=== PATIENT | female | born 1975 | race American Indian/Alaskan Native ===

== ENCOUNTER 2018-03-20 23:15 | Emergency (ER) | payer OTHER ==
[2018-03-20] MEDS ORDERED: Lorazepam 2 MG/ML VIAL ONE (23:41)
== END 2018-03-21 00:14 | disposition home or self-care (01) ==
LOC: MADERS 23:15
DX: R07.9 Chest pain, unspecified (principal); F41.9 Anxiety disorder, unspecified
CPT/HCPCS: 93005; 96374; J2060

== ENCOUNTER 2018-09-02 12:21 | Outpatient (CLI) | payer OTHER ==
--- NOTE | 2018-09-02 13:44 | RAD ---
LUMBAR SPINE RADIOGRAPHS THREE VIEWS: 09/02/2018 PROVIDED CLINICAL HISTORY: Back pain. FINDINGS: Five [id number] lumbar-type vertebral bodies are present. Lumbar alignment appears normal. Castro tebral body heights appear preserved. Intervertebral disk space heights appear preserved. Pedicles appear intact. No lytic or blastic lesions are seen. IMPRESSION: Unremarkable lumbar spine radiographs. POS: C
--- NOTE | 2018-09-02 13:54 | RAD ---
TWO VIEWS SACRUM AND COCCYX: Date: 09-02-18 Provided Clinical History: Sacroiliitis. FINDINGS: The sacroiliac joints are suboptimally evaluated in the absence of oblique views. However, there is a symmetric appearance to the sacroiliac joints without evidence for periarticular sclerosis or aversi on of the subchondral bone plate. No evidence for fracture or other acute osseous abnormality. IMPRESSION: 1. No radiograph evidence for sacroiliitis. POS: C
== END 2018-09-02 12:22 | disposition home or self-care (01) ==
LOC: MADRAD 12:21
PROVIDERS: ATTEND Family Medicine
DX: M46.1 Sacroiliitis, not elsewhere classified (principal)
CPT/HCPCS: 72100; 72220

== ENCOUNTER 2018-12-22 13:23 | Emergency (ER) | payer OTHER ==
--- NOTE | 2018-12-22 14:30 | RAD ---
CHEST 1 VIEW LEFT RIBS 2 VIEWS: Date: 12/22/18 HISTORY: Left rib pain, worse with inspiration. FINDINGS: No evidence for acute rib fracture demonstrated. No pneumothorax or pleural effusion. Heart size with in normal limits. Lungs appear clear. IMPRESSION: No convincing evidence for acute rib fracture. No pneumothorax or pleural effusion. POS: [facility]
== END 2018-12-22 14:31 | disposition home or self-care (01) ==
LOC: MADERS 13:23
DX: R07.89 Other chest pain (principal); G47.00 Insomnia, unspecified; J30.2 Other seasonal allergic rhinitis; K21.9 Gastro-esophageal reflux disease without esophagitis; F41.9 Anxiety disorder, unspecified; F31.9 Bipolar disorder, unspecified; F20.9 Schizophrenia, unspecified; Z79.899 Other long term (current) drug therapy

== ENCOUNTER 2019-03-02 13:51 | Outpatient (CLI) | payer OTHER ==
[2019-03-02 15:15] LABS: #Basophils 0.1 thou/uL (0.0-0.2); #Eosinphils 0.2 thou/uL (0.0-0.7); #Lymphocytes 2.7 thou/uL (1.20-3.40); #Monocytes 0.8 thou/uL (0.11-0.59); #Neutrophils 5.3 thou/uL (1.40-6.50); %Basophils 0.9 % (0.0-1.0); %Eosinophils 2.1 % (0.0-10.0); %Lymphocytes 29.8 % (21.0-51.0); %Monocytes 8.3 % (0.0-10.0); Hemoglobin 13.7 g/dL (12.0-16.0); Mean Corpuscular HGB CONC 32.5 g/dL (32.0-36.0); Mean Corpuscular Hemoglobin 27.4 pg (27.0-31.0); Mean Corpuscular Volume 84.2 fL (78.0-98.0); Mean Platelet Volume 6.4 fL (7.4-10.4); Platelet Count 294 thou/uL (130-400); RBC Distribution Width 13.4 % (11.5-14.5); Red Blood Cell (RBC) Count 5.01 mill/uL (4.20-5.40)
[2019-03-02 15:19] LABS: ALT (SGPT) 14 U/L (8-55); AST (SGOT) 16 U/L (5-34); Albumin 3.9 g/dL (3.5-5.0); Alkaline Phosphatase 84 U/L (40-150); Anion Gap 14 mmol/L (10-20); BUN (Urea Nitrogen) 6 mg/dL (7.0-18.7); Bilirubin, Total 0.2 mg/dL (0.2-1.2); Calc. Creatinine Clearance 0 mL/min (70-130); Calcium 8.9 mg/dL (7.8-10.44); Carbon Dioxide 24 mmol/L (22-29); Chloride 107 mmol/L (98-107); Estimated GFR-MDRD 79; Globulin 3.5 g/dL (2.4-3.5); Glucose 89 mg/dL (70-105); Potassium 3.9 mmol/L (3.5-5.1); Protein, Total 7.4 g/dL (6.0-8.3); Sodium 141 mmol/L (136-145)
[2019-03-03 01:44] LABS: HBCM Index 0.09 S/CO (0-0.79); HBSAg Index 0.32 S/CO (0-0.99); Hep A IgM AB Non-Reactive (NonReactive); Hep A IgM S/CO 0.15 S/CO (0-0.79); Hep B Surf Ag Non-Reactive S/CO (NonReactive); Hep C IgG Ab Non-Reactive (NonReactive); Hep C Index 0.06 S/CO (0-0.79); Hepatitis B Core IgM Abs Non-Reactive (NonReactive)
== END 2019-03-02 13:52 | disposition home or self-care (01) ==
LOC: MADLABBHPM 13:51
PROVIDERS: ATTEND Family Medicine
DX: R19.7 Diarrhea, unspecified (principal)
CPT/HCPCS: 36415; 80053; 80074; 85025